=== PATIENT | female | born 1985 | race African-American/Black ===

== ENCOUNTER 2018-10-28 12:08 | Emergency (ER) | payer OTHER ==
[2018-10-28 12:14] VITALS: PULSE 61; TEMP 98.2; BMI 29.7
[2018-10-28 13:09] VITALS: BP 156/99
[2018-10-28 13:50] LABS: PH,URINE 8.5 (5.0-8.0); URINE APPEARANCE Clear; URINE BILIRUBIN Negative (NEGATIVE); URINE COLOR Yellow; URINE GLUCOSE (UA) Negative (NEGATIVE); URINE KETONE Negative (NEGATIVE); URINE LEUK ESTERASE 1+ (NEGATIVE); URINE NITRITE Negative (NEGATIVE); URINE PROTEIN Trace (NEGATIVE); URINE UROBILINOGEN 0.2 mg/dL (0.2-1.0)
[2018-10-28] MEDS ORDERED: FLUCONAZOLE 150 MG TABLET PO ONE (13:56)
[2018-10-28] MEDS ORDERED: FLUCONAZOLE 100 MG TABLET (UD) ONE ×2 (14:02→14:03)
[2018-10-28 14:07] LABS: EPI CELLS 8.9 /HPF (0-5/HPF); HYALINE CASTS 4.87 /lpf (0-8); URINE BACTERIA 14.4 /hpf (NEGATIVE); URINE RBC 0.9 /hpf (0-4); URINE WBC 5 /hpf (0-5)
--- NOTE | 2018-10-28 14:20 | PDOC ---
History of Present Illness - General Chief Complaint: Vaginal Sxs Stated Complaint: Foreign Body (FB) Time Seen by Provider: 10/28/18 12:21 History Source: Patient Exam Limitations: No Limitations Past History - Past Medical History Allergies/Adverse Reactions: Allergies Allergy/AdvReac Type Severity Reaction Status Date / Time No Known Allergies Allergy Verified 10/28/18 12:14 COPD: No HTN: Yes - Suicide/Smoking/Psychosocial Hx Smoking History: Never smoked *Physical Exam - Vital Signs Last Vital Signs Temp Pulse Resp BP Pulse Ox 98.2 F 61 18 156/99 100 10/28/18 12:11 10/28/18 12:11 10/28/18 12:11 10/28/18 13:09 10/28/18 12:11 - Physical Exam General Appearance: No: Apparent Distress Respiratory/Chest: positive: Lungs Clear, Normal Breath Sounds. negative: Respiratory Distress Cardiovascular: positive: Regular Rhythm, Regular Rate, S1, S2. negative: Murmur Female Pelvic Exam: positive: other (thick, cottage cheese like discharge). negative: CMT, adnexal tenderness Gastrointestinal/Abdominal: positive: Normal Bowel Sounds, Soft. negative: Tender, Distended, Guarding, Rebound Neurologic: positive: Alert, Normal Mood/Affect ED Treatment Course - ADDITIONAL ORDERS Additional order review: Laboratory Results 10/28/18 10/28/18 12:45 12:45 Urine Color Yellow Urine Appearance Clear Urine pH 8.5 H Ur Specific Clymer 1.020 Urine Protein Trace Urine Glucose (UA) Negative Urine Ketones Negative Urine Blood Negative Urine Nitrite Negative Urine Bilirubin Negative Urine Urobilinogen 0.2 Ur Leukocyte Esterase 1+ H Urine WBC (Auto) 5 Urine RBC (Auto) 0.9 Urine Casts (Auto) 4.87 U Epithel Cells (Auto) 8.9 U Sm Round Cell (Auto) None seen Urine Bacteria (Auto) 14.4 Urine HCG, Qual Negative - Medications Given in the ED: ED Medications Discontinued Medications Generic Name Dose Route Start Last Admin Trade Name Freq PRN Reason Stop Dose Admin Fluconazole 150 mg 10/28/18 13:56 10/28/18 14:05 Fluconazole PO 10/28/18 13:57 150 mg ONCE ONE Administration Medical Decision Making - Medical Decision Making 32 y/o F hx of HTN presnets with thick cottage cheese like discharge from yesterday along with slight vaginal itching and mild dysuria. Denies fever, sob , cp, abd pain, vomiting. Patient is currently on Depo shot. Has not woodrow sexually active for 2 months. Denies hx of STDs. UCG negative UA unremarkable Treated for yeast infection with Fluconazole 10/28/18 14:15 *DC/Admit/Observation/Transfer Diagnosis at time of Disposition: Vaginal candidiasis - Discharge Dispostion Disposition: HOME Condition at time of disposition: Stable Decision to Admit order: No - Referrals - Patient Instructions Printed Discharge Instructions: DI for Vaginal Yeast Infection Additional Instructions: Thank you for choosing [facility]. It was a pleasure taking care of you. You were treated for vaginal yeast infection If you feel like the yeast infection has not subsided, you can also use Monistat vaginal suppository x 3 days Return to the Emergency Department if your symptoms worsen or persist or other concerning symptoms. - Post Discharge Activity
== END 2018-10-28 14:30 | disposition home or self-care (01) ==
LOC: JERFT 12:08
DX: B37.3 Candidiasis of vulva and vagina (principal)
CPT/HCPCS: 81003; 84703; 87086; 99282-25

== ENCOUNTER 2018-11-04 14:34 | Emergency (ER) | payer OTHER ==
[2018-11-04 14:41] VITALS: BP 105/50; PULSE 55; TEMP 98.5; BMI 29.7
--- NOTE | 2018-11-04 15:11 | PDOC ---
History of Present Illness - General Chief Complaint: Vaginal Sxs Stated Complaint: VAGINAL DISCHARGE Time Seen by Provider: 11/04/18 14:41 - History of Present Illness Initial Comments: 11/04/18 15:05 CHIEF COMPLAINT: vaginal itching/pain HISTORY OF PRESENT ILLNESS: 32 yo F returns to fast track with continued vaginal pain and itching x 4 days. Patient was treated for a yeast infection 1 week ago and took a second dose of Diflucan yesterday but continues to c/o of a "sharp pain" to her vagina with itching. Patient denies any open lesions or wounds. Patient is currently on depo for control. No recent travel or sick contacts. PAST MEDICAL HISTORY: Denies past medical history FAMILY HISTORY: Denies SOCIAL HISTORY: Denies tobacco, alcohol, illicit drug use. SURGICAL HISTORY: Denies ALLERGIES: No known drug allergies REVIEW OF SYSTEMS General/Constitutional: Denies fever or chills. Denies weakness, weight change. HEENT: Denies change in vision. Denies ear pain or discharge. Denies sore throat. Cardiovascular: Denies chest pain or shortness of breath. Respiratory: Denies cough, wheezing, or hemoptysis. Gastrointestinal: Denies nausea, vomiting, diarrhea or constipation. Denies rectal bleeding. Genitourinary: Vaginal pain and itching. Musculoskeletal: Denies joint or muscle swelling or pain. Denies neck or back pain. Skin and breasts: Denies rash or easy bruising. Neurologic: Denies headache, vertigo, loss of consciousness, or loss of sensation. Psychiatric: Denies depression or anxiety. PHYSICAL EXAM General Appearance: Well-appearing, appropriately dressed. No apparent distress. HEENT: EOMI, PERRLA, normal ENT inspection, normal voice, TMs normal, pharynx normal. No conjunctival pallor. No photophobia, scleral icterus. Neck: Supple. Trachea midline. No tenderness, rigidity, carotid bruit, stridor , lymphadenopathy, or thyromegaly. Respiratory/Chest: Lungs CTAB. No shortness of breath, chest tenderness, respiratory distress, accessory muscle use. No crackles, rales, rhonchi, stridor , wheezing, dullness Cardiovascular: RRR. S1, S2. No JVD, murmur, bradycardia, tachycardia. Vascular Pulses: Dorsalis-Pedis (R): 2+, Dorsalis-Pedis (L): 2+ Gastrointestinal/Abdominal: Normal bowel sounds. Abdomen soft, non-distended. No tenderness or rebound tenderness. No organomegaly, pulsatile mass, guarding , hernia, hepatomegaly, splenomegaly. Pelvic: External genitalia normal without lesions. Yellow/green discharge to cervix and vaginal vault. Cervix is long and closed. No cervical motion tenderness. Uterus is nontender and normal in size. Adnexa are nontender and without masses. Lymphatic: No adenopathy, tenderness. Musculoskeletal/Extremities: Normal inspection. FROM of all extremities, normal capillary refill. Pelvis Stable. No CVA tenderness. No tenderness to extremities, pedal edema, swelling, erythema or deformity. Integumentary: Appropriate color, dry, warm. No cyanosis, erythema, jaundice or rash Neurologic: network architect II-XII intact. Fully oriented, alert. Appropriate mood/affect. Motor strength 5/5. No appreciable EOM palsy, facial droop or sensory deficit. 11/04/18 15:11 11/04/18 15:16 Past History - Past Medical History Allergies/Adverse Reactions: Allergies Allergy/AdvReac Type Severity Reaction Status Date / Time No Known Allergies Allergy Verified 11/04/18 14:41 Home Medications: Ambulatory Orders Miconazole Nitrate [Miconazole 3] 1 each VG DAILY #1 combo..pkg 11/02/18 Fluconazole 100 mg PO ONCE #1 tablet 11/03/18 Nifedipine [Nifedipine ER] 90 mg PO DAILY 11/04/18 COPD: No HTN: Yes - Suicide/Smoking/Psychosocial Hx Smoking History: Never smoked *Physical Exam - Vital Signs Last Vital Signs Temp Pulse Resp BP Pulse Ox 98.5 F 55 L 18 105/50 L 99 11/04/18 14:39 11/04/18 14:39 11/04/18 14:39 11/04/18 14:39 11/04/18 14:39 Medical Decision Making - Medical Decision Making 11/04/18 15:16 32 yo F returns to fast track with continued vaginal pain and itching x 4 days. Will treat for ct/gc given discharge seen on pelvic exam. Advised patient to take medication as prescribed and follow up with OBGYN within the next week. Advised patient of signs and symptoms for return to ED. Patient verbalized understanding and agrees to plan. *DC/Admit/Observation/Transfer Diagnosis at time of Disposition: Screening for STD (sexually transmitted disease) - Discharge Dispostion Disposition: HOME Condition at time of disposition: Stable Decision to Admit order: No - Referrals [facility]errals: [facility] [Outside] - Patient Instructions Printed Discharge Instructions: DI for Vaginal Discharge, DI for Vaginal Itching - Post Discharge Activity
[2018-11-04] MEDS ORDERED: AZITHROMYCIN 500 MG TABLET PO ONE (15:17)
[2018-11-04] MEDS ORDERED: AZITHROMYCIN 250 MG TABLET ONE (15:23)
[2018-11-04 16:45] LABS: EPI CELLS 6.2 /HPF (0-5/HPF); HYALINE CASTS 174 /lpf (0-8); URINE APPEARANCE CLOUDY; URINE BACTERIA 6.4 /hpf (NEGATIVE); URINE BILIRUBIN NEGATIVE (NEGATIVE); URINE COLOR DK YELLOW; URINE GLUCOSE (UA) NEGATIVE (NEGATIVE); URINE KETONE 1+ (NEGATIVE); URINE LEUK ESTERASE TRACE (NEGATIVE); URINE NITRITE NEGATIVE (NEGATIVE); URINE PROTEIN 2+ (NEGATIVE); URINE RBC 1 /hpf (0-4); URINE WBC 6 /hpf (0-5)
[2018-11-04 16:56] LABS: URINE CRYSTALS NONE SEEN /hpf
== END 2018-11-04 16:36 | disposition home or self-care (01) ==
LOC: JERFT 14:34
DX: Z11.3 Encounter for screening for infections with a predominantly sexual mode of transmission (principal); I10 Essential (primary) hypertension
CPT/HCPCS: 36415; 81003; 84703; 87491; 87591; 96372; 99282-25

== ENCOUNTER 2018-12-23 14:55 | Emergency (ER) | payer OTHER ==
[2018-12-23 15:08] VITALS: BP 142/97; PULSE 93; TEMP 98.5; BMI 30.2
--- NOTE | 2018-12-23 16:06 | PDOC ---
History of Present Illness - General Chief Complaint: Vaginal Sxs Stated Complaint: VAGNIAL DISCHARGE Time Seen by Provider: 12/23/18 16:04 - History of Present Illness Initial Comments: Emily Doshi is a 33yo woman with a PMH of HTN who presents with one week of white vaginal discharge and burning pain. She states that this is similar to symptoms that she had earlier in the fall, and she states that she improved with metronidazole. She has not tried any OTC medications for her symptoms. Ms Doshi denies any fever, chills, abdominal pain, change in bowel habits, or urinary frequency though does endorse hematuria. Ms Doshi denies any concerns about STDs at this time. Past History - Past Medical History Allergies/Adverse Reactions: Allergies Allergy/AdvReac Type Severity Reaction Status Date / Time No Known Allergies Allergy Verified 11/04/18 14:41 Home Medications: Ambulatory Orders Nifedipine [Nifedipine ER] 90 mg PO DAILY 11/04/18 Fluconazole 150 mg PO UTDICT #1 tablet 12/23/18 COPD: No HTN: Yes - Reproductive History (#): 1 Cervical CA: No Dysfunctional Uterine Bleeding: No Ectopic : No Endometrial CA: No Polycystic Ovaries: No Therapeutic (s) & number: No Tubal Ligation: No - Psycho Social/Smoking Cessation Hx Smoking History: Never smoked Review of Systems - Review of Systems Comments:: General: No fevers, no chills, no weight or appetite change, no malaise HEENT: No changes in vision, no changes in hearing, no congestion, no sore throat CV: No chest pain, no palpitations, no LE edema Pulm: No SOB, no cough, no wheezing GI: No nausea or vomiting, no change in bowel habits, no melena : No frequency, no urgency, no dysuria. +thick white discharge Musc: No back pain, no joint swelling, no recent injury Skin: No rash, no lesions, no erythema Endo: No excessive thirst, no heat/cold intolerance Heme: No unusual bruising or bleeding, no swollen glands Neuro: No syncope, no numbness/tingling, no focal weakness Vasc: No claudication Psych: No recent change in mood, no SI or HI *Physical Exam - Vital Signs Last Vital Signs Temp Pulse Resp BP Pulse Ox 98.5 F 93 H 18 142/97 99 12/23/18 15:05 12/23/18 15:05 12/23/18 15:05 12/23/18 15:05 12/23/18 15:05 - Physical Exam Comments: General: Comfortable, no acute distress HEENT: PERRL, EOMI, MMM, voice normal, normal neck ROM, no LAD Cards: RRR, no murmur appreciated Pulm: Comfortable on room air, clear to auscultation bilaterally Abd: Soft, nontender, nondistended : No CVA tenderness. Normal external genitalia. No bleeding, no lesions. Thick white discharge in vaginal canal. No CMT, no adnexal tenderness Ext: Atraumatic. No LE edema. ROM intact. WWP Skin: Normal color, no rashes or lesions Neuro: A&Ox3, CN grossly intact, normal speech, motor/sensory grossly intact and symmetric Psych: Mood appropriate to situation Medical Decision Making - Medical Decision Making 12/23/18 16:28 Emily Doshi is a 33yo woman with a PMH of HTN who presents with one week of white vaginal discharge and burning pain as well as hematuria. - Need to complete pelvic exam - Ddx yeast infection, BV, less likely GC/chlamydia, , UTI 12/23/18 16:43 - Pelvic exam completed. Thick white discharge c/w yeast infection - Fluconazole ordered - UA, UCx 12/23/18 17:14 - Discussed with Dr Anglin and Dr Wayne. test and GC/chlamydia ordered - Per chart review, was treated empirically for GC/chlamydia in October but test was negative at that time 12/23/18 18:02 - UA borderline positive, but given yeast infection will defer treatment. Bacteria and WBC may be contaminents - Preg negative - Will d/c home with gynecology follow up, 2nd dose of fluconazole to be taken Tuesday if needed - Will be called if GC/chlamydia positive Discussed with Dr Derrek Brooks PGY2 Discharge - Discharge Information Problems reviewed: Yes Clinical Impression/Diagnosis: Vaginal yeast infection Condition: Stable Disposition: HOME - Admission No - Additional Discharge Information Prescriptions: Fluconazole 150 mg PO UTDICT #1 tablet - Follow up/Referral Referrals: [facility] [Provider Group] - Patient Discharge Instructions Patient Printed Discharge Instructions: DI for Vaginal Yeast Infection Additional Instructions: Discharge Instructions: You were seen in the emergency department for vaginal discharge and burning. You were found to have a yeast infection and given an anti-fungal medication in the ED. Your symptoms should resolve within the next few days. Home Care: - You have been given a 2nd dose of fluconazole to be taken on Tuesday if you still have symtpoms - Follow up with your aerodynamic consultant within the next week. If you need a new aerodynamic consultant, you have been given contact information for [facility] - Seek immediate care for worsening symptoms, unusual vaginal bleeding, development of fever to 101F, or any other medical emergency. - Post Discharge Activity
[2018-12-23] MEDS ORDERED: FLUCONAZOLE 50 MG TABLET PO ONE (16:38)
--- NOTE | 2018-12-23 16:52 | PDOC ---
Attending Attestation - Resident Resident Name: CeciliaMayra - HPI HPI: 12/23/18 16:59 Pt presents to the ED complaining of vaginal discharge, itching and burning and hematuria for one week. History of multiple yeast infections, also treated for GC and BV this year. Denies fever, nausea or vomiting. Does complain of mild hematuria. - Physicial Exam PE: 12/23/18 17:00 Agree with resident exam. patient is alert and oriented x 3, and in no acute distress. Abdomen is non tender. - Medical Decision Making 12/23/18 17:02 Pt presents to the ED complaining of vaginal discharge, itching and burning and hematuria. Pelvic exam performed by resident is consistent with yeast infection. Will check UA to rule out UTI, Urine GC to rule out gonorrhea or chlamydia and U preg.
[2018-12-23 17:44] LABS: HYALINE CASTS 18 /lpf (0-8); PH,URINE 6.5 (5.0-8.0); URINE APPEARANCE CLOUDY; URINE BACTERIA 150.4 /hpf (NEGATIVE); URINE BILIRUBIN NEGATIVE (NEGATIVE); URINE COLOR YELLOW; URINE GLUCOSE (UA) NEGATIVE (NEGATIVE); URINE KETONE NEGATIVE (NEGATIVE); URINE LEUK ESTERASE 2+ (NEGATIVE); URINE NITRITE NEGATIVE (NEGATIVE); URINE PROTEIN TRACE (NEGATIVE); URINE RBC 2 /hpf (0-4); URINE WBC 16 /hpf (0-5)
== END 2018-12-23 18:13 | disposition home or self-care (01) ==
LOC: JER 14:55
DX: B37.3 Candidiasis of vulva and vagina (principal); I10 Essential (primary) hypertension
CPT/HCPCS: 36415; 81003; 84703; 87086; 87491; 87591; 99282-25

== ENCOUNTER 2019-01-28 12:12 | Emergency (ER) | payer BC, OTHER ==
[2019-01-28 12:16] VITALS: TEMP 98.4; BMI 30.4
[2019-01-28] MEDS ORDERED: ACETAMINOPHEN 325 MG TABLET (FP) PO ONE (13:56)
--- NOTE | 2019-01-28 14:37 | PDOC ---
Documentation entered by Carolyn Pritchard SCRIBE, acting as scribe for Apurva Barrera MD. Apurva Barrera MD: This documentation has been prepared by the bradleyeFrancheska Joy, SCRIBE, under my direction and personally reviewed by me in its entirety. I confirm that the documentation accurately reflects all work, treatment, procedures, and medical decision making performed by me. History of Present Illness - General Chief Complaint: Vaginal Sxs Stated Complaint: Vaginal Sxs Time Seen by Provider: 01/28/19 12:21 History Source: Patient Exam Limitations: No Limitations - History of Present Illness Initial Comments: 01/28/19 14:18 The patient is a 33 year old female with significant past medical history of yeast infection, BV, preeclampsia, and HTN presenting to the ED with bilateral pelvic area pain and (thick) vaginal discharge for x1 week, a/w itching, dark urine, red/brown discharge. As per patient she has had these symptoms for a year and it has not resolved, +recurrent yeast infections and occ BV. Patient states she has been following up with NURSING INFORMATICS SPECIALIST (Dr. Dorado), and was advised to return to the ED for evaluation if sx recur. Patient adds she is on depo shot, and last real period was on 05/2017, usually irregular. Patient states she is currently sexually active with 1 partner. denies . Patient adds over the week she was on vacation in [place] where her symptoms started to worsen. Denies STDs, swimming, trauma, Denies fever, chills, chest pain, SOB, palpitation, dizziness, weakness, N, V, D, abdominal pain, bladder and bowel problems, leg swelling. Allergies: NKA Past Medical History: yeast infection, BV, preeclampsia, and HTN Social history: Lives with family. No tobacco, ETOH or drug use. Meds: as documented in EMR 01/28/19 14:31 Past History - Past Medical History Allergies/Adverse Reactions: Allergies Allergy/AdvReac Type Severity Reaction Status Date / Time No Known Allergies Allergy Verified 01/28/19 12:16 Home Medications: Ambulatory Orders Nifedipine [Nifedipine ER] 90 mg PO DAILY 11/04/18 Nystatin/Triamcinolone Top Oin [Mycolog II -] 1 applic TP BID 7 Days #1 applic 01/28/19 COPD: No HTN: Yes - Reproductive History (#): 1 Cervical CA: No Dysfunctional Uterine Bleeding: No Ectopic : No Endometrial CA: No Polycystic Ovaries: No Therapeutic (s) & number: No Tubal Ligation: No - Immunization History Immunization Up to Date: No - Psycho Social/Smoking Cessation Hx Smoking History: Never smoked Review of Systems - Review of Systems Able to Perform ROS?: Yes Comments:: 01/28/19 14:19 ROS General Medical (full) GENERAL/CONSTITUTIONAL: No fever or chills. No weakness. no sweats. HEAD, EYES, EARS, NOSE AND THROAT: No headache/dizziness, no congestion. CARDIOVASCULAR: No chest pain or palpitations, syncope or edema. RESPIRATORY: No SOB, cough GASTROINTESTINAL No nausea/vomiting. No diarrhea or constipation. GENITOURINARY: +itchy, +thick discharge, +abnormal urine (dark, red/brown), + hematuria. No dysuria, frequency, urgency. MUSCULOSKELETAL: +Bilateral pelvic area pain. No decreased range of motion. No neck or back pain. SKIN: No rash or changes in skin color or lesions. No wounds. NEUROLOGIC: alert and oriented appropriately No headache, dizziness, loss of consciousness, or change in strength/sensation. HEMATOLOGIC/LYMPHATIC: No anemia, easy bruising/bleeding, or history of blood clots. ALLERGIC/IMMUNOLOGIC: No allergies PSYCH: no anxiety/depression All other systems reviewed and negative, or as documented in HPI. 01/28/19 14:34 *Physical Exam - Vital Signs Last Vital Signs Temp Pulse Resp BP Pulse Ox 98.4 F 138 H 18 131/85 97 01/28/19 12:14 01/28/19 12:14 01/28/19 12:14 01/28/19 12:14 01/28/19 12:14 - Physical Exam 01/28/19 14:25 Physical exam General: Well appearing, awake and alert, NAD. HEENT: NCAT, PERRL, EOMI, clear conjunctiva, anicteric, moist mucous membranes , clear oropharynx, no oral lesions.. Neck: neck supple, FROM Resp: CTAB, normal and even respirations, no respiratory distress CVS: RRR, no murmurs, 2+ peripheral pulses throughout, no peripheral edema Abdomen: soft, NTND, no rebound or guarding. No CVAT. : +thick cottage cheese like material in vaginal vault, normal external genitalia, no lesions, no CMT, no adnexal tenderness. Smooth and pink cervix, closed with area of erythema at the os. Back: non-tender, normal inspection and ROM MSK: no edema, LONG x4, ROM intact. No clubbing or cyanosis. normal bulk and tone. Extremities: no calf tenderness Neuro: alert, oriented appropriately; no focal neurologic deficits Skin: warm and well perfused, cap refill <2 sec, normal color 01/28/19 14:33 ED Treatment Course - ADDITIONAL ORDERS Additional order review: Laboratory Results 01/28/19 14:27 POC Glucometer 107 01/28/19 14:27 POC Glucometer 107 Medical Decision Making - Medical Decision Making 01/28/19 14:35 Vital Signs Temp Pulse Resp BP Pulse Ox 98.4 F 138 H 18 131/85 97 01/28/19 12:14 01/28/19 12:14 01/28/19 12:14 01/28/19 12:14 01/28/19 12:14 DDx female abdominal pain/VB: ovarian cyst, ovarian torsion, TOA, UTI, pyelonephritis, STD/PID, Mittelschmerz, DUB, candidiasis, vaginosis vitals reviewed, +tachycardia, +some pain, will give analgesia and recheck normotensive afebrile. pelvic exam unremarkable, +yeast infection suspected with some cervical erythema , no CMT. +cottage cheese thick discharge noted no adnexal tenderness. no s/s to suggest adnexal or ovarian torsion/pathology ua neg prelim, preg test neg f/u urine cultures STD testing done, f/u results, no sx to suggest treatment at this time. FS normal, so doubt related to diabetes/glycemic derangement. given tylenol for pain, VS on recheck improved, no longer as tachycardic, remains nontoxic and well appearing, no systemic features. abdomen nonperitoneal. no further pelvic/abdominal sx to warrant imaging at this time, as there is infectious cause/candidiasis, pending further cultures. nystatin - triamcinolone bid x [address] [address] Dorado followup, return precautions, proper hygiene reviewed for recurrent infection. 01/28/19 14:37 01/28/19 15:26 Discharge - Discharge Information Problems reviewed: Yes Clinical Impression/Diagnosis: Vaginal candidiasis Condition: Improved Disposition: HOME - Admission No - Additional Discharge Information Prescriptions: Nystatin/Triamcinolone Top Oin [Mycolog II -] 1 applic TP BID 7 Days #1 applic - Follow up/Referral Referrals: [facility] [Provider Group] - Patient Discharge Instructions Patient Printed Discharge Instructions: DI for Vaginal Yeast Infection, DI for Vaginal Discharge, DI for Vaginal Itching Additional Instructions: 1) Please follow-up with your primary care doctor in the next 1-2 days. Please call tomorrow for for any urgent issues. you should follow up with dinkey engineer, referrals given or your own Dr Dorado 2) You were given a copy of the tests performed today. Please bring the results with you and review them with your primary care doctor. Your laboratory / imaging results were normal, finger stick is normal. follow up on the urine cultures and the infection culture. 3) If you have any worsening of symptoms or any other concerns please return to the ED immediately. Return if worsening symptoms including fevers, headache, vomiting, visual or hearing disturbances, abdominal pain, vaginal bleeding, worsening pain, chest pain, shortness of breath, syncope, dehydration, inability to take things by mouth/vomiting, altered mental status, or worsening concerning symptoms. 4) Please continue taking your home medications as directed. your medications on discharge include nystatin-steroid cream twice a day x 1 week . side effects may include upset stomach, abdominal pain, vomiting, or diarrhea. do not drink alcohol with your medications. Stay well hydrated and rest adequately. Make an appointment. If you cannot follow-up with your primary care doctor please return to the ED - Post Discharge Activity Work/Back to School Note: Back to Work
[2019-01-28 14:48] LABS: PH,URINE 8.5 (5.0-8.0); URINE APPEARANCE CLEAR; URINE BILIRUBIN NEGATIVE (NEGATIVE); URINE COLOR YELLOW; URINE GLUCOSE (UA) NEGATIVE (NEGATIVE); URINE KETONE NEGATIVE (NEGATIVE); URINE LEUK ESTERASE NEGATIVE (NEGATIVE); URINE NITRITE NEGATIVE (NEGATIVE); URINE PROTEIN NEGATIVE (NEGATIVE); URINE UROBILINOGEN 0.2 mg/dL (0.2-1.0)
[2019-01-28] MEDS ORDERED: ACETAMINOPHEN 325 MG TABLET (FP) ONE (14:53)
[2019-01-28 15:04] VITALS: BP 118/83; PULSE 102
== END 2019-01-28 15:30 | disposition home or self-care (01) ==
LOC: JER 12:12 → JERFT 12:12 → JER 15:30
DX: B37.3 Candidiasis of vulva and vagina (principal)
CPT/HCPCS: 36415; 81003; 82962; 84703; 87086; 87491; 87591; 87661; 99282-25

== ENCOUNTER 2019-03-03 18:11 | Emergency (ER) | payer BC, OTHER ==
[2019-03-03 18:18] VITALS: BP 161/99; PULSE 94; TEMP 97.9; BMI 31.1
--- NOTE | 2019-03-03 18:41 | PDOC ---
History of Present Illness <Suhail Ham - Last Filed: 03/03/19 21:00> - History of Present Illness Initial Comments: 03/03/19 18:39 CHIEF COMPLAINT: vaginal discharge HISTORY OF PRESENT ILLNESS: 33 yo F with hx of bacterial vaginosis and UTI presents to the ED complaining of vaginal discharge, itching and burning and hematuria for one week. Patient reports that she has had a history of multiple yeast infections and was also treated for gonorrhea and BV within the last year year. Patient reports her discharge is odell and foul smelling. Denies fever, nausea, vomiting, diarrhea, and back pain. No recent travel or sick contacts. PAST MEDICAL HISTORY: BV, UTIs, gonorrhea, vaginal candidiasis FAMILY HISTORY: Denies SOCIAL HISTORY:Denies tobacco, alcohol, illicit drug use. SURGICAL HISTORY: Denies ALLERGIES: No known drug allergies REVIEW OF SYSTEMS General/Constitutional: Denies fever or chills. Denies weakness, weight change. HEENT: Denies change in vision. Denies ear pain or discharge. Denies sore throat. Cardiovascular: Denies chest pain or shortness of breath. Respiratory: Denies cough, wheezing, or hemoptysis. Gastrointestinal: Denies nausea, vomiting, diarrhea or constipation. Denies rectal bleeding. Genitourinary: Dysuria, foul smelling negron vaginal discharge. Musculoskeletal: Denies joint or muscle swelling or pain. Denies neck or back pain. Skin and breasts: Denies rash or easy bruising. Neurologic: Denies headache, vertigo, loss of consciousness, or loss of sensation. Psychiatric: Denies depression or anxiety. PHYSICAL EXAM General Appearance: Well-appearing, appropriately dressed. No apparent distress , no intoxication. HEENT: EOMI, PERRLA, normal ENT inspection, normal voice, TMs normal, pharynx normal. No conjunctival pallor. No photophobia, scleral icterus. Neck: Supple. Trachea midline. No tenderness, rigidity, carotid bruit, stridor , lymphadenopathy, or thyromegaly. Respiratory/Chest: Lungs CTAB. No shortness of breath, chest tenderness, respiratory distress, accessory muscle use. No crackles, rales, rhonchi, stridor , wheezing, dullness Cardiovascular: RRR. S1, S2. No JVD, murmur, bradycardia, tachycardia. Vascular Pulses: Dorsalis-Pedis (R): 2+, Dorsalis-Pedis (L): 2+ Gastrointestinal/Abdominal: Normal bowel sounds. Abdomen soft, non-distended. No tenderness or rebound tenderness. No organomegaly, pulsatile mass, guarding , hernia, hepatomegaly, splenomegaly. Pelvic: External genitalia normal without lesions. Vaginal vault with moderate amount of green/brown discharge. Cervix is long and closed. No cervical motion tenderness. Uterus is nontender and normal in size. Adnexa are nontender and without masses. Lymphatic: No adenopathy, tenderness. Musculoskeletal/Extremities: Normal inspection. FROM of all extremities, normal capillary refill. Pelvis Stable. No CVA tenderness. No tenderness to extremities, pedal edema, swelling, erythema or deformity. Integumentary: Appropriate color, dry, warm. No cyanosis, erythema, jaundice or rash Neurologic: pipe puller II-XII intact. Fully oriented, alert. Appropriate mood/affect. Motor strength 5/5. No appreciable EOM palsy, facial droop or sensory deficit. <Madison Colon - Last Filed: 03/07/19 14:56> - General Chief Complaint: Vaginal Sxs Stated Complaint: vaginal (brownish) discharge Time Seen by Provider: 03/03/19 18:17 Past History <Suhail Ham - Last Filed: 03/03/19 21:00> - Past Medical History COPD: No HTN: Yes - Reproductive History (#): 1 Cervical CA: No Dysfunctional Uterine Bleeding: No Ectopic : No Endometrial CA: No Polycystic Ovaries: No Therapeutic (s) & number: No Tubal Ligation: No - Immunization History Immunization Up to Date: No - Psycho Social/Smoking Cessation Hx Smoking History: Never smoked Have you smoked in the past 12 months: No Information on smoking cessation initiated: No Hx Alcohol Use: No Drug/Substance Use Hx: No <Madison Colon - Last Filed: 03/07/19 14:56> - Past Medical History Allergies/Adverse Reactions: Allergies Allergy/AdvReac Type Severity Reaction Status Date / Time No Known Allergies Allergy Verified 01/28/19 12:16 Home Medications: Ambulatory Orders Nifedipine [Nifedipine ER] 90 mg PO DAILY 11/04/18 Nystatin/Triamcinolone Top Oin [Mycolog II -] 1 applic TP BID 7 Days #1 applic 01/28/19 *Physical Exam - Vital Signs Last Vital Signs Temp Pulse Resp BP Pulse Ox 97.9 F 94 H 18 161/99 100 03/03/19 18:15 03/03/19 18:15 03/03/19 18:15 03/03/19 18:15 03/03/19 18:15 <Suhail Ham - Last Filed: 03/03/19 21:00> - Vital Signs Last Vital Signs Temp Pulse Resp BP Pulse Ox 97.9 F 94 H 18 161/99 100 03/03/19 18:15 03/03/19 18:15 03/03/19 18:15 03/03/19 18:15 03/03/19 18:15 <Madison Colon - Last Filed: 03/07/19 14:56> ED Treatment Course - ADDITIONAL ORDERS Additional order review: Laboratory Results 03/03/19 18:50 Urine Color Yellow Urine Appearance Clear Urine pH 8.0 Ur Specific [place] 1.022 Urine Protein Negative Urine Glucose (UA) Negative Urine Ketones Negative Urine Blood Negative Urine Nitrite Negative Urine Bilirubin Negative Urine Urobilinogen 1.0 Ur Leukocyte Esterase Negative - Medications Given in the ED: ED Medications Discontinued Medications Generic Name Dose Route Start Last Admin Trade Name Freq PRN Reason Stop Dose Admin Azithromycin 1,000 mg 03/03/19 18:50 03/03/19 19:22 Zithromax PO 03/03/19 18:51 1,000 mg ONCE ONE Administration Ceftriaxone Sodium 250 mg 03/03/19 18:50 03/03/19 19:22 Rocephin - IM 03/03/19 18:51 250 mg ONCE ONE Administration <Suhail Ham - Last Filed: 03/03/19 21:00> Medical Decision Making - Medical Decision Making 03/03/19 18:49 33 yo F with hx of bacterial vaginosis and UTI presents to the ED complaining of vaginal discharge, itching and burning and hematuria for one week. -ct/gc/trich -ua/uc 03/03/19 18:50 Given discharge visualized on pelvic exam, presentation appears more consistent with STD. Will treat empirically. -azithromycin -ceftriaxone Advised patient to take medication as prescribed and follow up with [employer] [facility] within the next week. Advised patient of signs and symptoms for return to ED. Patient verbalized understanding and agrees to plan. <Madison Colon - Last Filed: 03/07/19 14:56> Discharge <Suhail Ham - Last Filed: 03/03/19 21:00> - Discharge Information Problems reviewed: Yes - Admission No <Madison Colon - Last Filed: 03/07/19 14:56> - Discharge Information Clinical Impression/Diagnosis: Screening for STD (sexually transmitted disease) Condition: Stable Disposition: HOME - Follow up/Referral - Patient Discharge Instructions Patient Printed Discharge Instructions: Facts About Sexually Transmitted Infections Additional Instructions: As discussed, please follow up with your OBGYN within the next week for continued evaluation of your recurrent symptoms. Avoid intercourse for at least 7-10 days after treatment to prevent reinfection. If you develop back pain, fever, chills, vomiting, diarrhea, or any new or worsening symptoms, please return to the ER.
[2019-03-03] MEDS ORDERED: AZITHROMYCIN 500 MG TABLET PO ONE (18:50)
[2019-03-03] MEDS ORDERED: AZITHROMYCIN 250 MG TABLET ONE (19:01)
[2019-03-03 20:08] LABS: URINE APPEARANCE CLEAR; URINE BILIRUBIN NEGATIVE (NEGATIVE); URINE COLOR YELLOW; URINE GLUCOSE (UA) NEGATIVE (NEGATIVE); URINE KETONE NEGATIVE (NEGATIVE); URINE LEUK ESTERASE NEGATIVE (NEGATIVE); URINE NITRITE NEGATIVE (NEGATIVE); URINE PROTEIN NEGATIVE (NEGATIVE)
== END 2019-03-03 21:17 | disposition home or self-care (01) ==
LOC: JERFT 18:11
DX: A64 Unspecified sexually transmitted disease (principal); Z87.440 Personal history of urinary (tract) infections; Z86.19 Personal history of other infectious and parasitic diseases
CPT/HCPCS: 36415; 81003; 87086; 87491; 87591; 87661; 96372; 99281-25

== ENCOUNTER 2019-11-24 15:57 | Emergency (ER) | payer BC, OTHER ==
[2019-11-24 16:02] VITALS: TEMP 98; BMI 29.8
--- OUTSIDE RECORDS SUMMARY | 2019-11-24 16:15 | XMS ---
:1985 Author Organization [facility] Care Team Providers Name Role Phone James Staley Unavailable Unavailable LeoSunil Unavailable Unavailable Re-disclosure Warning The records that you are about to access may contain information from federally- assisted alcohol or drug abuse programs. If such information is present, then the following federally mandated warning applies: This information has been disclosed to you from records protected by federal confidentiality rules (42 CFR part 2). The federal rules prohibit you from making any further disclosure of this information unless further disclosure is expressly permitted by the written consent of the person to whom it pertains or as otherwise permitted by 42 CFR part 2. A general authorization for the release of medical or other information is NOT sufficient for this purpose. The Federal rules restrict any use of the information to criminally investigate or prosecute any alcohol or drug abuse patient.The records that you are about to access may contain highly sensitive health information, the redisclosure of which is protected by Article 27-F of the [facility] Public Health law. If you continue you may haveaccess to information: Regarding HIV / AIDS; Provided by facilities licensed or operated by the [facility] Office of Mental Health; or Provided by the [facility] Office for People With Developmental Disabilities. If such information is present, then the following [facility] mandated warning applies: This information has been disclosed to you from confidential records which are protected by state law. State law prohibits you from making any further disclosure of this information without the specific written consent of the person to whom it pertains, or as otherwise permitted by law. Any unauthorized further disclosure in violation of state law may result in a fine or assisted sentence or both. A general authorization for the release of medical or other information is NOT sufficient authorization for further disclosure. Encounters Encounter Providers Location Date Indications Data Source(s ) Emergency Attender: James 5T-EMERG 08/12/2018 [facility] Hospital EDT - 08/12/2018 08:00:00 PM EDT [facility] Patient discharged. Emergency Attender: Sunil 5T-EMERG 07/24/2018 POSSIBLE VAGINAL [facility] 02:31:00 PM EDT - INFECTION [facility] 07/24/2018 06:28:00 PM EDT POSSIBLE VAGINAL INFECTION Patient discharged. Medications Medication Brand Start Product Dose Route Administrative Pharmacy [facility] Indications Reaction Description Data Name Date Form Instructions Instructions Source(s) NITROFURANT Macrob 08/12/ CAPSULE 1 ORAL complet [facility] OIN, id 100 2018 {cap( ed Health MACROCRYSTA mg 07:23: s)} System LS 25 MG / oral 11 PM Nitrofurant capsul EDT oin, e Monohydrate 75 MG Oral Capsule [Macrobid] Macrobid 100 mg oral capsule Finish all this medication unless otherw ise directed by prescriber.May discolor urine or feces.Take with food or milk. Metronidazole Flagyl 07/24/2018 TABLET 1 {tab(s)} ORAL completed [facility] 500 MG Oral 500 mg 06:18:28 PM Health Tablet [Flagyl] oral EDT Syst em Flagyl 500 mg tablet oral tablet Do not drink alcoholic beverages when ta navarro this medication.Finish all this medication unless otherwise directed by prescriber.May discolor urine or feces. NITROFURANTOIN, Macrobid 10/23/2017 CAPSULE 1 ORAL completed [facility] MACROCRYSTALS 25 100 mg 03:29:50 PM {cap(s)} Health MG / oral EDT System Nitrofurantoin, capsule Monohydrate 75 MG Oral Capsule [Macrobid] Macrobid 100 mg oral capsule Finish all this medication unless otherw ise directed by prescriber.May discolor urine or feces.Take with food or milk. Hydrochlorothiazide hydroCHLOROthiazide TABLET 1 ORAL com pleted [facility] 50 MG Oral Tablet 50 mg oral tablet {tab(s)} Health hydroCHLOROthiazide System 50 mg oral tablet 24 HR Nifedipine 90 NIFEdipine 90 mg 1 ORAL complete d [facility] MG Extended Release oral tablet, {tab(s)} Health Oral Tablet extended release System NIFEdipine 90 mg oral tablet, extended release Insurance Providers Payer name Policy type Policy ID Covered Covered libertarian's Policy P manish / Coverage libertarian ID relationship to [place] Inf ormation type [place] MEDICAID [id number] SP [id number] BLUE CROSS [id number] SP [id number] SENIOR PLAN 70 MEDICARE [id number] SP [id number] 1 Medicaid Medicaid [id number] 1 [id number] Medicare Part Medicare [id number] 1 [id number] B Outpatient 1 Problems, Conditions, and Diagnoses Code Display Name Description Problem Type Effective Dates Data Source(s) N39.0 Urinary tract UTI (urinary tract Diagnosis 08/12/2018 [facility] infection, site infection) 02:53:00 PM EDT [facility] not specified I10 Essential Essential Diagnosis 08/12/2018 [facility] (primary) hypertension 02:53:00 PM EDT [facility] hypertension [facility] Diagnosis 08/12/2018 [facility] 02:53:00 PM EDT [facility] spital POSSIBLE VAGINAL POSSIBLE VAGINAL Diagnosis 07/24/2018 [facility] INFECTION [facility] Acute [facility]initis Acute vaginitis Diagnosis 07/24/2018 [facility] Procedure Description Date Indications Data Source(s) Aerobic Culture, Urine 08/12/2018 [facility] 05:27:00 PM EDT System - 08/12/2018 05:27:00 PM EDT Urine Test 08/12/2018 [facility] POCT 05:25:19 PM EDT System - 08/12/2018 05:25:19 PM EDT Chlamydia 08/12/2018 [facility] th Trachomatis/Neisseria 05:21:00 PM EDT Sys tem Gonorrhea RNA,TMA - 08/12/2018 05:21:00 PM EDT Aerobic Culture, Urine 07/24/2018 [facility] -Clean Catch 04:49:00 PM EDT System - 07/24/2018 04:49:00 PM EDT Trichomonas vaginalis 07/24/2018 [facility] RNA Qualitative 04:40:00 PM EDT System - 07/24/2018 04:40:00 PM EDT Chlamydia 07/24/2018 [facility] Trachomatis/Neisseria 04:40:00 PM EDT Sys tem Gonorrhea RNA,TMA - 07/24/2018 04:40:00 PM EDT Urine Test 07/24/2018 [facility] POCT 04:24:56 PM EDT System - 07/24/2018 04:24:56 PM EDT Urine Test 10/23/2017 [facility] POCT 01:35:53 PM EDT System - 10/23/2017 01:35:53 PM EDT Urine Test 07/23/2017 [facility] POCT 01:52:55 PM EDT System - 07/23/2017 01:52:55 PM EDT Results ID Date Data Source [id number] 08/12/2018 05:21:00 PM EDT [facility] System Name Value Range Interpretation Description Data Sup porting Code Source(s) Document(s ) Color YELLOW Yellow Normal (applies Color [facility] to non-numeric Health results) System Appearance of CLEAR Clear Normal (applies Urine [facility] Urine to non-numeric Appearance Health results) System Specific 1.020 1.001 - Normal (applies Urine Specific [facility] gravity of 1.035 to non-numeric [facility] Urine results) System pH.. 7.5 4.6 - 8.0 Normal (applies pH.. [facility] {pH_units} pH units to non-numeric Health results) System Glucose, UA NEGATIVE < 50 Normal (applies Glucose, UA [facility] mg/dl to non-numeric Health results) System Protein NEGATIVE < 30 Normal (applies Protein [facility] [Mass/volume] mg/dl to non-numeric Health in Serum or results) System Plasma Urobilinogen 0.2 mg/dL 0.2 - 1.0 Normal (applies Urobilinogen [facility] [Mass/volume] mg/dL to non-numeric [facility] in Urine results) System Bilirubin NEGATIVE Negative Normal (applies Bilirubin [facility] Urine Sm to Lg to non-numeric Urine Health results) System Ketones NEGATIVE Negative Normal (applies Ketones UA [facility] [Mass/volume] mg/dL to non-numeric Health in Urine results) System Nitrate+Nitrit NEGATIVE Negative Normal (applies Nitrite [facility] Neg/Pos to non-numeric Health [Mass/volume] results) System in Unspecified specimen Leukocyte SMALL Negative Abnormal Leukocyte [facility] esterase Tr to Lg (applies to Esterase Health [Units/volume] non-numeric Concentration System in Urine results) Leukocytes 4 {/HPF} 0 - 2 Normal (applies White Blood [facility] [#/volume] in /HPF to non-numeric Cells Health Unspecified results) System specimen by Automated count Red Blood 0 {/HPF} 0 - 1 Normal (applies Red Blood [facility] Cells /HPF to non-numeric Cells Health results) System Epithelial 4 {/HPF} 0 - 3 Normal (applies Epithelial [facility] cells /HPF to non-numeric Cells Health [Presence] in results) System Unspecified specimen by Wet preparation Urine Blood NEGATIVE Negative Normal (applies Urine Blood [facility] Sm to Lg to non-numeric Health results) System Bacteria 1+ 0 - 1+ Abnormal Bacteria [facility] [Presence] in /HPF (applies to Health Unspecified non-numeric System specimen results) ID Date Data Source [id number] 08/12/2018 05:21:00 PM EDT [facility] System Name Value Range Interpretation Description Data Sup porting Code Source(s) Document(s ) Erythrocytes 4.70 3.80 - Normal (applies RBC Count [facility] [#/volume] in {10^6_u 5.20 to non-numeric Health Blood by L} 10^6 uL results) System Automated count Leukocytes 10.9 4.8 - Above high WBC Count [facility] [#/volume] in {10^3_u 10.8 normal Health Unspecified L} 10^3 uL System specimen by Automated count Hemoglobin 13.2 12.0 - Normal (applies Hemoglobin [facility] [Mass/volume] in {gm/dL} 16.0 to non-numeric Health Blood gm/dL results) System Erythrocyte mean 85.1 fl 83.0 - Normal (applies MCV [facility] corpuscular 98.0 fl to non-numeric Health volume [Entitic results) System volume] by Automated count Hematocrit 40.0 % 36.0 - Normal (applies Hematocrit [facility] [Volume 46.0 % to non-numeric Health Fraction] of results) System Blood Erythrocyte mean 28.1 pg 26.0 - Normal (applies MCH [facility] corpuscular 34.0 pg to non-numeric Health hemoglobin results) System [Entitic mass] by Automated count Erythrocyte 12.7 % 11.5 - Normal (applies RDW-CV [facility] distribution 14.5 % to non-numeric Health width [Entitic results) System volume] by Automated count Erythrocyte mean 33.0 33.0 - Normal (applies MCHC [facility] corpuscular {gm/dL} 37.0 to non-numeric Health hemoglobin gm/dL results) System concentration [Mass/volume] by Automated count Platelets 357 130 - Normal (applies Platelet Count [facility] [#/volume] in {10^3_u 400 to non-numeric Health Plasma by L} 10^3 uL results) System Automated count Platelet mean 11.1 fl 7.4 - Above high MPV [facility] volume [Entitic 10.4 fl normal Health volume] in Blood System by Automated count Monocytes 0.7 0.3 - Normal (applies Monocyte # [facility] [#/volume] in {10^3_u 0.9 to non-numeric Health Blood by Manual L} 10^3 uL results) System count Eosinophils 0.06 0.05 - Normal (applies Eosinophil # [facility] [#/volume] in {10^3_u 0.30 to non-numeric Health Blood L} 10^3 uL results) System Neutrophils 7.0 2.0 - Normal (applies Neutrophil # [facility] [#/volume] in {10^3_u 8.1 to non-numeric Health Body fluid L} 10^3 uL results) System Basophils 0.03 0.00 - Normal (applies Basophil # [facility] [#/volume] in {10^3_u 0.10 to non-numeric Health Blood by L} 10^3 uL results) System Automated count Neutrophils/100 64.1 % 55.0 - Normal (applies Neutrophil % Matthias bertha leukocytes in 75.0 % to non-numeric Health Blood by results) System Automated count Lymphocyte # 3.1 1.0 - Normal (applies Lymphocyte # [facility] {10^3_u 5.5 to non-numeric Health L} 10^3 uL results) System Monocytes/100 6.4 % 6.0 - Normal (applies Monocyte % [facility] leukocytes in 9.0 % to non-numeric Health Blood results) System Eosinophils/100 0.6 % 0.0 - Normal (applies Eosinophil % Matthias bertha leukocytes in 4.0 % to non-numeric Health Unspecified results) System specimen Basophils/100 0.3 % 0.0 - Normal (applies Basophil % [facility] leukocytes in 1.0 % to non-numeric Health Unspecified results) System specimen by Manual count Immature 0.2 % 0.0 - Normal (applies Immature [facility] Granulocytes % 0.8 % to non-numeric Granulocytes % Healt h results) System Lymphocytes 28.4 % 21.0 - Normal (applies Lymphocyte % [facility] [#/volume] in 51.0 % to non-numeric Health Blood by results) System Automated count Nucleated 0.0 0.0 - Normal (applies NRBC % [facility] erythrocytes {/100_W 0.0 to non-numeric Health [#/volume] in BC} /100 results) System Body fluid WBC Immature 0.02 0.00 - Normal (applies Immature [facility] Granulocytes # {10^3_u 0.09 to non-numeric Granulocytes # Healt h L} 10^3 uL results) System NRBC # 0.00 0.90 - Below low normal NRBC # [facility] {10^3_u 11.20 Health L} 10^3 uL System ID Date Data Source [id number] 08/12/2018 05:21:00 PM EDT [facility] System Name Value Range Interpretation Description Data Sup porting Code Source(s) Document(s ) HCG NEGATIVE Negative Normal (applies HCG [facility] Qualitative mIU/ml to non-numeric Qualitative Health results) System Default Normal RangesNegative <5Indeterm inate 5-25(Please repeat in 2 days.)Positive >25 ID Date Data Source [id number] 08/12/2018 05:21:00 PM EDT [facility] System Name Value Range Interpretation Description Data Sup porting Code Source(s) Document(s ) Sodium 141 137 - Normal (applies Sodium, Serum [facility] [Moles/volume] in mmol/L 145 to non-numeric Health Serum or Plasma mmol/L results) System Potassium 3.5 3.6 - Below low normal Potassium, [facility] [Mass/volume] in mmol/L 5.0 Serum Health Serum or Plasma mmol/L System Chloride 106 98 - Normal (applies Chloride, [facility] [Moles/volume] in mmol/L 107 to non-numeric Serum Health Serum or Plasma mmol/L results) System Carbon dioxide, 20.0 22.0 - Below low normal CO2, Serum [facility] total mmol/L 30.0 Health [Moles/volume] in mmol/L System Serum or Plasma Total Protein 8.4 6.3 - Above high Total Protein [facility] mg/dl 8.2 normal Health mg/dl System Glucose 87 65 - Normal (applies Glucose, [facility] [Mass/volume] in mg/dL 105 to non-numeric Serum Health Serum or Plasma mg/dL results) System Urea nitrogen 9 mg/dl 7 - 18 Normal (applies Blood Urea [facility] [Mass/volume] in mg/dl to non-numeric Nitrogen, Health Serum or Plasma results) Serum System Creatinine 0.90 0.70 - Normal (applies Creatinine, [facility] [Mass/volume] in mg/dl 1.20 to non-numeric Serum Health Serum or Plasma mg/dl results) System Bilirubin.total 1.0 0.2 - Normal (applies Bilirubin, [facility] [Mass/volume] in mg/dl 1.3 to non-numeric Serum Total Health Serum or Plasma mg/dl results) System Alkaline 66 38 - Normal (applies Alkaline [facility] phosphatase {IU/L} 126 to non-numeric Phosphatase, Health isoenzymes IU/L results) Serum System [Enzymatic activity/volume] in Serum or Plasma by Heat stability Direct Bilirubin 0.4 0.0 - Normal (applies Direct [facility] mg/dl 0.4 to non-numeric Bilirubin Health mg/dl results) System Albumin 5.2 3.9 - Above high Albumin, [facility] [Mass/volume] in {gm/dl} 5.0 normal Serum Health Serum or Plasma gm/dl System Aspartate 16 5 - 40 Normal (applies Aspartate [facility] aminotransferase {IU/L} IU/L to non-numeric Transaminase, Heal th [Enzymatic results) Serum System activity/volume] in Serum or Plasma by With P-5'-P I. Phosphorus 3.7 2.5 - Normal (applies I. Phosphorus [facility] mg/dl 4.5 to non-numeric Health mg/dl results) System Alanine 14 7 - 56 Normal (applies Alanine [facility] aminotransferase {IU/L} IU/L to non-numeric Aminotransfer Heal th [Enzymatic results) ase, Serum System activity/volume] in Serum or Plasma Calcium 10.6 8.4 - Above high Calcium, [facility] [Mass/volume] in mg/dl 10.2 normal Total Serum Health Serum or Plasma mg/dl System A/G Ratio 1.63 Normal (applies A/G Ratio [facility] to non-numeric Health results) System Urate 4.8 2.5 - Normal (applies Uric Acid, [facility] [Mass/volume] in mg/dl 7.5 to non-numeric Serum Health Serum or Plasma mg/dl results) System Anion gap in Serum 15.00 8.00 - Above high Anion Gap [facility] or Plasma mmol/L 12.00 normal Health mmol/L System Glomerular 72.24 Normal (applies GFR [facility] filtration to non-numeric Health rate/1.73 sq results) System M.predicted [Volume Rate/Area] in Serum or Plasma by Creatinine-based formula (CKD-EPI) eGFR will provide clinicians with a more accurate indicator of renal function then the serum creatinine. The eGFR is automa tically calculated from an empiric formula (endorsed by the National Kid[employer] ion) which incorporates age, sex, and race.Clinicians may notice surprisingly low GFR's with serum creatinine valueswithin normal range- particularly in elderly wo men (with low muscle mass).In the hospital setting, the eGFR should add an element of safety in drug dosing, in assessing the risk of IV contrast administration, and in assessing vascular risk.The NKF staging system is as follows:Normal: eGFR >90 with no kidney markersStage 1: eGFR >90 with kidney markers*Stage 2: eGFR 60- 89Stage 3: eGFR 30-59Stage 4: eGFR 15-29Stage 5: eGFR <15 (usually requir ing dialysis)*Markers include: Proteinuria, Hematuria, abnormal imaging-studies, or other blood or urine test abnormalities ID Date Data Source [id number] 07/24/2018 04:41:00 PM EDT [facility] System Name Value Range Interpretation Description Data Sup porting Code Source(s) Document(s ) N. Gonorrhea Not Normal (applies N. Gonorrhea [facility] by LCR DetectedReference to non-numeric by LCR Health Range: Not results) System DetectedThis test was performed using the APTIMA COMBO2(R) Assay(GENEcoSwarmPROBE(R )).Please add the following message:For additional information, please refer [email or web address]( This link is being provided for informational/edu cationalpurposes only)Test Performed at:[facility], [place] [id number] Alba M.D. C. Not Normal (applies C. [facility] Trachomatis DetectedReference to non-numeric Trachomatis Hea lth Amp Range: Not results) Amp System Detected ID Date Data Source [id number] 07/24/2018 04:41:00 PM EDT [facility] System Name Value Range Interpretation Description Data Sup porting Code Source(s) Document(s ) Deprecated NO GROWTH Aerobic [facility] Bacteria Culture, Urine Health System identified in Urine by Aerobe culture ID Date Data Source [id number] 07/24/2018 04:40:00 PM EDT [facility] System Name Value Range Interpretation Description Data Sup porting Code Source(s) Document(s ) Color YELLOW Yellow Normal (applies Color [facility] to non-numeric Health results) System Appearance of CLEAR Clear Normal (applies Urine [facility] Urine to non-numeric Appearance Health results) System Specific > 1.030 1.001 - Normal (applies Urine Specific [facility] gravity of 1.035 to non-numeric [facility] Urine results) System pH.. 6.0 4.6 - 8.0 Normal (applies pH.. [facility] {pH_units} pH units to non-numeric Health results) System Protein NEGATIVE < 30 Normal (applies Protein [facility] [Mass/volume] mg/dl to non-numeric Health in Serum or results) System Plasma Glucose, UA NEGATIVE < 50 Normal (applies Glucose, UA [facility] mg/dl to non-numeric Health results) System Urobilinogen 0.2 mg/dL 0.2 - 1.0 Normal (applies Urobilinogen [facility] [Mass/volume] mg/dL to non-numeric UA Health in Urine results) System Bilirubin NEGATIVE Negative Normal (applies Bilirubin [facility] Urine Sm to Lg to non-numeric Urine Health results) System Nitrate+Nitrit NEGATIVE Negative Normal (applies Nitrite [facility] Neg/Pos to non-numeric Health [Mass/volume] results) System in Unspecified specimen Leukocyte NEGATIVE Negative Normal (applies Leukocyte [facility] esterase Tr to Lg to non-numeric Esterase Health [Units/volume] results) Concentration System in Urine Ketones TRACE Negative Abnormal Ketones UA [facility] [Mass/volume] mg/dL (applies to Health in Urine non-numeric System results) Leukocytes 5 {/HPF} 0 - 2 Normal (applies White Blood [facility] [#/volume] in /HPF to non-numeric Cells Health Unspecified results) System specimen by Automated count Red Blood 2 {/HPF} 0 - 1 Normal (applies Red Blood [facility] Cells /HPF to non-numeric Cells Health results) System Bacteria 1+ 0 - 1+ Abnormal Bacteria [facility] [Presence] in /HPF (applies to Health Unspecified non-numeric System specimen results) Epithelial 12 {/HPF} 0 - 3 Normal (applies Epithelial [facility] cells /HPF to non-numeric Cells Health [Presence] in results) System Unspecified specimen by Wet preparation Mucus PRESENT 0 - 1 Normal (applies Mucus [facility] /LPF to non-numeric Health results) System Urine Blood NEGATIVE Negative Normal (applies Urine Blood [facility] Sm to Lg to non-numeric Health results) System ID Date Data Source [id number] 07/24/2018 04:40:00 PM EDT [facility] Name Value Range Interpretation Description Data Sup porting Code Source(s) Document(s ) Trichomonas Not Normal (applies Trichomonas [facility] vaginalis rRNA DetectedReferen to non-numeric vaginalis Heal th [Presence] in ce Range: Not results) RNA System Unspecified DetectedThis Qualitative specimen by test was Probe and performed using target the APTIMA(R) amplification Trichomonasvagi method nalis Assay (GEN-PROBE(R)). For more information on this test, go to:[email or web address] est Performed at:[facility], [address] Streetbrayden Alba M.D. ID Date Data Source [id number] 10/23/2017 01:15:00 PM EDT [facility] System Name Value Range Interpretation Description Data Sup porting Code Source(s) Document(s ) N. Gonorrhea Not Normal (applies N. Gonorrhea [facility] by LCR DetectedReference to non-numeric by LCR Health Range: Not results) System DetectedThis test was performed using the APTIMA COMBO2(R) Assay(GEN-PROBE(R )).Test Performed at:[facility], [place] [id number] Alba M.D. C. Not Normal (applies C. [facility] Trachomatis DetectedReference to non-numeric Trachomatis Hea lt Amp Range: Not results) Amp System Detected ID Date Data Source [id number] 10/23/2017 12:54:00 PM EDT [facility] Name Value Range Interpretation Description Data Sup porting Code Source(s) Document(s ) Appearance of CLEAR Clear Normal (applies Urine [facility] Urine to non-numeric Appearance Health results) System Color YELLOW Yellow Normal (applies Color [facility] to non-numeric Health results) System Glucose, UA NEGATIVE < 50 Normal (applies Glucose, UA [facility] mg/dl to non-numeric Health results) System Specific 1.020 1.001 - Normal (applies Urine Specific [facility] gravity of 1.035 to non-numeric [facility] Urine results) System pH.. 6.5 4.6 - 8.0 Normal (applies pH.. [facility] {pH_units} pH units to non-numeric Health results) System Bilirubin NEGATIVE Negative Normal (applies Bilirubin [facility] Urine Sm to Lg to non-numeric Urine Health results) System Protein TRACE < 30 Normal (applies Protein [facility] [Mass/volume] mg/dl to non-numeric Health in Serum or results) System Plasma Urobilinogen 2.0 mg/dL 0.2 - 1.0 Normal (applies Urobilinogen [facility] [Mass/volume] mg/dL to non-numeric UA Health in Urine results) System Leukocyte SMALL Negative Abnormal Leukocyte [facility] esterase Tr to Lg (applies to Esterase Health [Units/volume] non-numeric Concentration System in Urine results) Ketones NEGATIVE Negative Normal (applies Ketones UA [facility] [Mass/volume] mg/dL to non-numeric Health in Urine results) System Nitrate+Nitrit NEGATIVE Negative Normal (applies Nitrite [facility] Neg/Pos to non-numeric Health [Mass/volume] results) System in Unspecified specimen Urine Blood NEGATIVE Negative Normal (applies Urine Blood [facility] Sm to Lg to non-numeric Health results) System Red Blood 0 {/HPF} 0 - 1 Normal (applies Red Blood [facility] Cells /HPF to non-numeric Cells Health results) System Leukocytes 5 {/HPF} 0 - 2 Normal (applies White Blood [facility] [#/volume] in /HPF to non-numeric Cells Health Unspecified results) System specimen by Automated count ID Date Data Source [id number] 07/23/2017 01:57:00 PM EDT [facility] Name Value Range Interpretation Description Data Sup porting Code Source(s) Document(s ) hCG 14152.64 Normal (applies hCG [facility] Quantitative {mIU/mL} to non-numeric Quantitative Health results) System Negative = <5 mIU/mLAPPROXIMATE GEST. AG E APPROXIMATE HCG mIU/ML 0.2 - 1 week 5 - 50 1 - 2 w eeks 50 - 500 2 - 3 weeks 100 - 5,000 3 - 4 weeks 500 - 10,000 4 - 5 weeks 1,000 - 50,000 5 - 6 weeks 10,000 - 100,000 6 - 8 weeks 15,000 - 200,000 8 - 12 weeks 10,000 - 1 00,000HCG levels between 5-25 mIU/mL may be indicative of early . Correlati on with other clinical findings and/or repeat of HCG quantitative testing recommened. ID Date Data Source [id number] 07/23/2017 01:21:00 PM EDT [facility] Name Value Range Interpretation Description Data Sup porting Code Source(s) Document(s ) N. Gonorrhea Not Normal (applies N. Gonorrhea [facility] by [facility]CR DetectedReference to non-numeric by LCR Health Range: Not results) System DetectedThis test was performed using the APTIMA COMBO2(R) Assay(GEN-PROBE(R )).Test Performed at:[facility], [place] [id number] Alba M.D. C. Not Normal (applies C. [facility] Trachomatis DetectedReference to non-numeric Trachomatis [facility] Amp Range: Not results) Amp System Detected ID Date Data Source [id number] 07/23/2017 01:16:00 PM EDT [facility] System Name Value Range Interpretation Description Data Sup porting Code Source(s) Document(s ) Specific 1.020 1.001 - Normal (applies Urine Specific [facility] gravity of 1.035 to non-numeric [facility] Urine results) System Appearance of CLEAR Clear Normal (applies Urine [facility] Urine to non-numeric Appearance Health results) System Color YELLOW Yellow Normal (applies Color [facility] to non-numeric Health results) System pH.. 6.5 4.6 - 8.0 Normal (applies pH.. [facility] {pH_units} pH units to non-numeric Health results) System Protein TRACE < 30 Normal (applies Protein [facility] [Mass/volume] mg/dl to non-numeric Health in Serum or results) System Plasma Bilirubin SMALL Negative Abnormal Bilirubin [facility] Urine Sm to Lg (applies to Urine Health non-numeric System results) Glucose, UA NEGATIVE < 50 Normal (applies Glucose, UA [facility] mg/dl to non-numeric Health results) System Urobilinogen 0.2 mg/dL 0.2 - 1.0 Normal (applies Urobilinogen [facility] [Mass/volume] mg/dL to non-numeric UA Health in Urine results) System Leukocyte MODERATE Negative Abnormal Leukocyte [facility] esterase Tr to Lg (applies to Esterase Health [Units/volume] non-numeric Concentration System in Urine results) Nitrate+Nitrit NEGATIVE Negative Normal (applies Nitrite [facility] Neg/Pos to non-numeric Health [Mass/volume] results) System in Unspecified specimen Ketones TRACE Negative Abnormal Ketones UA [facility] [Mass/volume] mg/dL (applies to Health in Urine non-numeric System results) Red Blood 3 {/HPF} 0 - 1 Normal (applies Red Blood [facility] Cells /HPF to non-numeric Cells Health results) System Leukocytes 25 {/HPF} 0 - 2 Normal (applies White Blood [facility] [#/volume] in /HPF to non-numeric Cells Health Unspecified results) System specimen by Automated count Bacteria 4+ 0 - 1+ Abnormal Bacteria [facility] [Presence] in /HPF (applies to Health Unspecified non-numeric System specimen results) Urine Blood NEGATIVE Negative Normal (applies Urine Blood [facility] Sm to Lg to non-numeric Health results) System Mucus 2+ 0 - 1 Normal (applies Mucus [facility] /LPF to non-numeric Health results) System Epithelial 10 {/HPF} 0 - 3 Normal (applies Epithelial [facility] cells /HPF to non-numeric Cells Health [Presence] in results) System Unspecified specimen by Wet preparation ID Date Data Source [id number] 07/23/2017 01:16:00 PM EDT [facility] Name Value Range Interpretation Description Data Sup porting Code Source(s) Document(s ) Deprecated Micro Result Normal (applies Aerobic [facility] Bacteria Final Culture to non-numeric Culture, Health identified Reading results) Urine System in Urine by Note::"MULTIPL Aerobe E BACTERIAL culture MORPHOTYPES PRESENT, POSSIBLE CONTAMINATION, SUGGEST RECOLLECTION IF CLINICALLY INDICATED". Procedure Vital Signs ID Date Data Source UNK Name Value Range Interpretation Code Description Data Source(s) Body temperature 98 [degF] 0 - 200 Normal (applies to 98 [degF] [facility] non-numeric results) [facility] Body temperature 36.6 Edda 0 - 99.9 Normal (applies to 36.6 Edda [facility] non-numeric results) [facility] Diastolic blood 70 mm[Hg] 0 - 999 Normal (applies to 70 mm[Hg] [facility] pressure non-numeric results) [facility] Systolic blood 125 mm[Hg] 0 - 999 Normal (applies to 125 mm[Hg] [facility] pressure non-numeric results) [facility] Deprecated Oxygen 100 % 0 - 999 Normal (applies to 100 % [facility] saturation in non-numeric results) H ealth System Capillary blood by Oximetry Respiratory rate 16 0 - 999 Normal (applies to 16 [facility] non-numeric results) [facility] Heart rate 95 0 - 999 Normal (applies to 95 [facility] non-numeric results) [facility] Body surface area 2 m2 2 m2 [facility] Derived from Health Syste m formula Body mass index 30.4 kg/m2 30.4 kg/m2 [facility] (BMI) [Ratio] Health Syst em Body weight 93.44 kg 93.44 kg [facility] Body height 175.26 cm 175.[facility] Body temperature 97.9 [degF] 0 - 200 Normal (applies to 97.9 [degF ] [facility] non-numeric results) [facility] Body temperature 36.6 Edda 0 - 99.9 Normal (applies to 36.6 Edda [facility] non-numeric results) [facility] System Diastolic blood 88 mm[Hg] 0 - 999 Above high normal 88 mm[Hg] [facility] Systolic blood 144 mm[Hg] 0 - 999 Above high normal 144 mm[Hg] [facility] System Deprecated Oxygen 100 % 0 - 999 Normal (applies to 100 % [facility] saturation in non-numeric results) H ealt System Capillary blood by Oximetry Respiratory rate 17 0 - 999 Normal (applies to 17 [facility] non-numeric results) [facility] Heart rate 77 0 - 999 Normal (applies to 77 [facility] non-numeric results) [facility] Body surface area 2 m2 2 m2 [facility] Derived from [facility] Sy[facility] m formula Body mass index 30.2 kg/m2 30.2 [facility] Syst em Body weight 92.98 kg 92.98 kg [facility] Measured [facility] System Body height 175.26 cm 175.26 cm [facility] Patient Treatment Plan of Care Planned Activity Planned Date Details Description Data Source (s) NITROFURANTOIN, MACROCRYSTALS 08/12/2018 [facility] 25 MG / Nitrofurantoin, 07:23:11 PM EDT [facility] Monohydrate 75 MG Oral Capsule [Macrobid] Metronidazole 500 MG Oral 07/24/2018 [facility] Tablet [Flagyl] 06:18:28 PM EDT System NITROFURANTOIN, MACROCRYSTALS 10[facility]23[facility]2017 [facility] / Nitrofurantoin, 03:29:50 PM EDT [facility] Monohydrate 75 MG Oral Capsule [Macrobid] 24 HR Nifedipine 90 MG [facility] Extended Release Oral Tablet System Hydrochlorothiazide 50 MG [facility] Oral Tablet System
--- NOTE | 2019-11-24 16:52 | PDOC ---
History of Present Illness - General Chief Complaint: Vaginal Sxs Stated Complaint: VAGINAL DISCHARGE History Source: Patient Exam Limitations: No Limitations - History of Present Illness Initial Comments: 11/24/19 16:50 Patient is a 32-year-old female with PMHx of UTI, BV, sexually active, G1, P1, complaining of vaginal discharge x1 week. She describes the discharge as a fishy odor and burning irritation especially on urination. States she has some lower abdominal pain. Prior episodes in the past last was in June and was treated for BV. Patient has had multiple work-up in the emergency room for vaginal discharge and vaginal irritation. Denies nausea, vomiting, fever, chills. ANIMAL TAXONOMIST: Dr. Valdovinos PMD: Dr. Mcclure PMHx: As above PSocHX: neg etoh, drug, cig ALL: nkda GENERAL/CONSTITUTIONAL: [No fever or chills. No weakness. No weight change.] HEAD, EYES, EARS, NOSE AND THROAT: [No change in vision. No ear pain or discharge. No sore throat.] CARDIOVASCULAR: [No chest pain or shortness of breath.] RESPIRATORY: [No cough, wheezing, or hemoptysis.] GASTROINTESTINAL: [No nausea, vomiting, diarrhea or constipation. No rectal bleeding.] GENITOURINARY: (+) dysuria, (-) frequency, or change in urination.] MUSCULOSKELETAL: [No joint or muscle swelling or pain. No neck or back pain.] SKIN AND BREASTS: [No rash or easy bruising.] NEUROLOGIC: [No headache, vertigo, loss of consciousness, or loss of sensation.] PSYCHIATRIC: [No depression or anxiety.] ENDOCRINE: [No increased thirst. No abnormal weight change.] HEMATOLOGIC/LYMPHATIC: [No anemia, easy bleeding, or history of blood clots.] ALLERGIC/IMMUNOLOGIC: [No hives or skin allergy. No latex allergy.] GENERAL: [The patient is awake, alert, and fully oriented, in no acute distress.] HEAD: [Normal with no signs of trauma.] EYES: [Pupils equal, round and reactive to light, extraocular movements intact, sclera anicteric, conjunctiva clear.] ENT: [Ears normal, nares patent, oropharynx clear without exudates. Moist mucous membranes.] NECK: [Normal range of motion, supple without lymphadenopathy, JVD, or masses.] LUNGS: [Breath sounds equal, clear to auscultation bilaterally. No wheezes, and no crackles.] HEART: [Regular rate and rhythm, normal S1 and S2 without murmur, rub.] ABDOMEN: [Soft, mild tenderness lower abd, normoactive bowel sounds. No guarding, no rebound. No masses.] PELVIC: normal external genitalia, small amount of thick clumpy discharge in the vault, EXTREMITIES: [Normal range of motion, no edema. No clubbing or cyanosis. No cords, erythema, or tenderness.] NEUROLOGICAL: [Cranial nerves II through XII grossly intact. Stuttering speech, normal gait.] PSYCH: [Normal mood, normal affect.] SKIN: [Warm, Dry, normal turgor, no rashes or lesions noted.] Past History - Medical History Allergies/Adverse Reactions: Allergies Allergy/AdvReac Type Severity Reaction Status Date / Time No Known Allergies Allergy Verified 11/24/19 15:59 Home Medications: Ambulatory Orders Nifedipine [Nifedipine ER] 90 mg PO DAILY 11/04/18 Nystatin/Triamcinolone Top Oin [Mycolog II -] 1 applic TP BID 7 Days #1 applic 01/28/19 Miconazole Nitrate [Monistat 3] 1 each [facility] HS #1 kit 11/24/19 COPD: No HTN: Yes - Reproductive History Is Patient Now?: No (#): 1 Cervical CA: No Dysfunctional Uterine Bleeding: No Ectopic : No Endometrial CA: No Polycystic Ovaries: No Therapeutic (s) & number: No Tubal Ligation: No - Immunization History Immunization Up to Date: No - Psycho-Social/Smoking History Smoking History: Never smoked Have you smoked in the past 12 months: No - Substance Abuse Hx (Audit-C & DAST Scrn) How often the patient has a drink containing alcohol: Never Score: In Men: 4 or > Positive; In Women: 3 or > Positive: 0 Screen Result (Pos requires Nsg. Audit-10AR): Negative In the last yr the pt used illegal drug/Rx for NonMed reason: No Score: Yes response is considered Positive: 0 Screen Result (Positive result requires Nsg. DAST-10): Negative *Physical Exam - Vital Signs Last Vital Signs Temp Pulse Resp BP Pulse Ox 98.0 F 120 H 18 136/80 100 11/24/19 15:59 11/24/19 15:59 11/24/19 15:59 11/24/19 15:59 11/24/19 15:59 Medical Decision Making - Medical Decision Making 11/24/19 16:50 Patient is a 32-year-old female with PMHx of UTI, BV, sexually active, G1, P1, complaining of vaginal discharge x1 week. She describes the discharge as a fishy odor and burning irritation especially on urination. States she has some lower abdominal pain. Prior episodes in the past last was in June and was treated for BV. Patient has had multiple work-up in the emergency room for vaginal discharge and vaginal irritation. Denies nausea, vomiting, fever, chills. UA sent GC chlamydia Discharge if stable Patient noted to have a blood pressure of 120 and repeat was 109. Patient states that she always has a elevated pulse. She has seen a social contact worker last visit was 4 days ago at which time TSH was done, results are still pending. This was discussed with the patient and she will follow-up with cardiology and her primary care doctor. Discharge - Discharge Information Problems reviewed: Yes Clinical Impression/Diagnosis: Vaginal discharge, Vaginal candidiasis Condition: Stable Disposition: HOME - Additional Discharge Information Prescriptions: Miconazole Nitrate [Monistat 3] 1 each [facility] HS #1 kit - Follow up/Referral - Patient Discharge Instructions Patient Printed Discharge Instructions: DI for Vaginal Yeast Infection Additional Instructions: Your Discharge Instructions: You must call primary care physician within 24 hours to arrange follow-up. Return to the Emergency Department with any new, persistent or worsening symptoms, for fever, chills, SOB, dizziness or any other concerning changes that may occur. You must follow-up with your primary care doctor and your social contact worker for further evaluation of your elevated pulse rate. - Post Discharge Activity
[2019-11-24 17:26] LABS: PH,URINE 7.5 (5.0-8.0); URINE APPEARANCE CLEAR; URINE BILIRUBIN NEGATIVE (NEGATIVE); URINE COLOR YELLOW; URINE GLUCOSE (UA) NEGATIVE (NEGATIVE); URINE KETONE NEGATIVE (NEGATIVE); URINE LEUK ESTERASE NEGATIVE (NEGATIVE); URINE NITRITE NEGATIVE (NEGATIVE); URINE PROTEIN NEGATIVE (NEGATIVE); URINE UROBILINOGEN 0.2 mg/dL (0.2-1.0)
[2019-11-24 17:32] LABS: HCG,QUALITATIVE URINE Negative
[2019-11-24 17:44] VITALS: BP 141/88
[2019-11-24 17:54] VITALS: PULSE 109
== END 2019-11-24 18:02 | disposition home or self-care (01) ==
LOC: JERFT 15:57
DX: N89.9 Noninflammatory disorder of vagina, unspecified (principal); B37.3 Candidiasis of vulva and vagina
CPT/HCPCS: 36415; 81003; 84703; 87491; 87591; 99283-25

== ENCOUNTER 2020-01-24 11:12 | Emergency (ER) | payer BC, OTHER ==
[2020-01-24 11:24] VITALS: TEMP 98.7; BMI 29.5
[2020-01-24] MEDS ORDERED: LACTATED RINGERS SOLUTION 1000 ML INFUS.BAG IV ONE ×2 (12:43→15:15)
[2020-01-24] MEDS ORDERED: ACETAMINOPHEN 325 MG TABLET (FP) PO ONE (13:50)
[2020-01-24] MEDS ORDERED: ACETAMINOPHEN 325 MG TABLET (FP) ONE (13:57)
[2020-01-24 15:05] LABS: BASO % 0.5 % (0-2.0); EOS % 1.4 % (0-4.5); HEMATOCRIT 39.8 % (32.4-45.2); HEMOGLOBIN 13.7 GM/dL (10.7-15.3); LYMPH % 22.7 % (8-40); MCH 29.8 pg (25.7-33.7); MCHC 34.4 g/dl (32.0-36.0); MEAN CELL VOLUME 86.8 fl (80-96); MEAN PLT VOLUME 10.2 fl (7.5-11.1); MONO % 5.9 % (3.8-10.2); NEUT % 69.5 % (42.8-82.8); PLATELET COUNT 283 K/MM3 (134-434); RBC 4.58 M/mm3 (3.60-5.2); RDW 13.7 % (11.6-15.6); WHITE BLOOD COUNT 8.6 K/mm3 (4.0-10.0)
[2020-01-24 15:09] LABS: EPI CELLS 17 /uL (0-25.1); HYALINE CASTS 1 /uL (0-3.1); URINE APPEARANCE CLEAR; URINE BACTERIA 634 /uL (0-1359); URINE BILIRUBIN NEGATIVE (NEGATIVE); URINE COLOR YELLOW; URINE GLUCOSE (UA) NEGATIVE (NEGATIVE); URINE KETONE NEGATIVE (NEGATIVE); URINE LEUK ESTERASE 1+ (NEGATIVE); URINE NITRITE NEGATIVE (NEGATIVE); URINE PROTEIN NEGATIVE (NEGATIVE); URINE RBC 4 /uL (0-23.9); URINE WBC 9 /uL (0-25.8)
[2020-01-24] MEDS ORDERED: CEFTRIAXONE 1 GM in DEXTROSE 5%-WATER - 50 ML IVPB ONE (15:17)
[2020-01-24] MEDS ORDERED: metroNIDAZOLE 250 MG TABLET PO ONE (15:19)
[2020-01-24] MEDS ORDERED: DOXYCYCLINE HYCLATE 100 MG CAPSULE PO ONE ×2 (15:20→15:43)
[2020-01-24 15:34] LABS: HCG,QUALITATIVE URINE Negative
[2020-01-24 15:35] LABS: POTASSIUM 3.6 mmol/L (3.5-5.1)
[2020-01-24 15:36] LABS: CALCIUM 9.5 mg/dL (8.5-10.1)
[2020-01-24 15:37] LABS: ALBUMIN 4.2 g/dl (3.4-5.0); BLOOD UREA NITROGEN 11.4 mg/dL (7-18)
[2020-01-24 15:40] LABS: CREATININE 0.8 mg/dL (0.55-1.3)
[2020-01-24 15:42] LABS: TOT PROT 7.9 g/dl (6.4-8.2)
[2020-01-24] MEDS ORDERED: metroNIDAZOLE 250 MG TABLET ONE (15:42)
[2020-01-24] MEDS ORDERED: CEFTRIAXONE 1 GM/50 ML BAG ONE (15:43)
[2020-01-24 15:46] LABS: BILIRUBIN,TOTAL 0.9 mg/dL (0.2-1)
[2020-01-24 17:34] VITALS: BP 131/66; PULSE 110
== END 2020-01-24 17:34 | disposition home or self-care (01) ==
LOC: JER 11:12
DX: N89.8 Other specified noninflammatory disorders of vagina (principal)
CPT/HCPCS: 36415; 80053; 81003; 84443; 84703; 85025; 85379; 87086; 87491; 87591; 87661; 93005; 93010; 99284-25

== ENCOUNTER 2020-04-27 15:04 | Emergency (ER) | payer BC, OTHER ==
[2020-04-27 15:18] VITALS: TEMP 98; BMI 30.4
[2020-04-27 17:00] LABS: URINE APPEARANCE CLEAR; URINE BILIRUBIN NEGATIVE (NEGATIVE); URINE COLOR YELLOW; URINE GLUCOSE (UA) NEGATIVE (NEGATIVE); URINE KETONE NEGATIVE (NEGATIVE); URINE LEUK ESTERASE NEGATIVE (NEGATIVE); URINE NITRITE NEGATIVE (NEGATIVE); URINE PROTEIN NEGATIVE (NEGATIVE)
[2020-04-27 17:49] VITALS: BP 123/78; PULSE 94
== END 2020-04-27 17:50 | disposition home or self-care (01) ==
LOC: JER 15:04 → JERFT 15:04
DX: N89.8 Other specified noninflammatory disorders of vagina (principal)
CPT/HCPCS: 36415; 81003; 87086; 87491; 87591; 99283-25

== ENCOUNTER 2023-02-11 16:32 | Emergency (ER) | payer BC, OTHER ==
[2023-02-11 16:37] VITALS: BP 143/90; PULSE 98; RESP 18; TEMP 98.2; BMI 45.3
[2023-02-11] MEDS ORDERED: KETOROLAC TROMETHAMINE 30 MG/1 ML VIAL IM ONE (17:57)
[2023-02-11] MEDS ORDERED: KETOROLAC TROMETHAMINE 30 MG/1 ML VIAL ONE (18:25)
[2023-02-11 18:26] LABS: PH,URINE 5.5 (5.0-8.0); URINE APPEARANCE CLEAR; URINE BILIRUBIN NEGATIVE (NEGATIVE); URINE COLOR DK YELLOW; URINE GLUCOSE (UA) NEGATIVE (NEGATIVE); URINE KETONE TRACE (NEGATIVE); URINE LEUK ESTERASE NEGATIVE (NEGATIVE); URINE NITRITE NEGATIVE (NEGATIVE); URINE PROTEIN TRACE (NEGATIVE)
[2023-02-11 18:29] LABS: HCG,QUALITATIVE URINE Negative
== END 2023-02-11 18:58 | disposition home or self-care (01) ==
LOC: JERFT 16:32
PROC: 3E0233Z Introduction of Anti-inflammatory into Muscle, Percutaneous Approach (ICD-10-PCS; principal; 2023-02-11)
DX: N89.9 Noninflammatory disorder of vagina, unspecified (principal); R10.30 Lower abdominal pain, unspecified; R35.0 Frequency of micturition; R39.15 Urgency of urination; R30.0 Dysuria; R31.9 Hematuria, unspecified
CPT/HCPCS: 36415; 81003; 84703; 87086; 87186; 87491; 87591; 87661; 99284-25